=== PATIENT | female | born 1945 | race Caucasian/White ===

== ENCOUNTER 2022-06-06 07:18 | Day surgery (SDC) | payer MEDICARE ==
[2022-06-06] MEDS ORDERED: Lactated Ringers 1,000 ML IV SCH (08:00)
[2022-06-06] MEDS ORDERED: fentaNYL 100 MCG/2 ML SDV ONE (08:25)
[2022-06-06] MEDS ORDERED: Propofol 200 MG/20 ML SDV ONE (08:25)
[2022-06-06] MEDS ORDERED: Sodium Chloride 0.9% 10 ML ONE (09:39)
== END 2022-06-06 11:10 | disposition home or self-care (01) ==
LOC: JP.SDS 07:18
PROVIDERS: ATTEND Family Medicine
DX: D12.2 Benign neoplasm of ascending colon (principal); D12.0 Benign neoplasm of cecum; D12.4 Benign neoplasm of descending colon; C67.9 Malignant neoplasm of bladder, unspecified; Z98.890 Other specified postprocedural states; Z79.899 Other long term (current) drug therapy
CPT/HCPCS: 88305; J2704; J3010; J3490; J7120

== ENCOUNTER 2022-11-18 03:54 | Emergency (ER) | payer MEDICARE ==
[2022-11-18] MEDS ORDERED: fentaNYL 100 MCG/2 ML SDV IM ONE (04:45)
[2022-11-18] MEDS ORDERED: Sodium Chloride 0.9% 1,000 ML IV STA (04:54)
[2022-11-18] MEDS ORDERED: Sodium Chloride 0.9% 10 ML Syringe FLUSH PRN (04:54)
[2022-11-18] MEDS ORDERED: fentaNYL 100 MCG/2 ML SDV IVPUSH ONE (04:59)
[2022-11-18] MEDS ORDERED: Naloxone 0.4 MG/ML SDV IVPUSH PRN (04:59)
[2022-11-18] MEDS ORDERED: Sodium Chloride 0.9% 10 ML SDV FLUSH ONE (05:13)
[2022-11-18] MEDS ORDERED: Iopamidol 612 MG/ML 100 ML Bottle IV PRN (05:13)
[2022-11-18 05:15] LABS: BASOPHILS ABSOLUTE AUTO 0.03 K/uL (0.00-0.10); BASOPHILS PERCENT AUTO 0.2 % (0.1-1.3); EOSINOPHILS ABSOLUTE AUTO 0.04 K/uL (0.00-0.40); EOSINOPHILS PERCENT AUTO 0.3 % (0.0-5.4); HEMOGLOBIN 13.3 g/dL (11.2-15.5); IMMATURE GRAN ABSOLUTE AUTO 0.06 K/uL (0.00-0.23); IMMATURE GRAN PERCENT AUTO 0.4 % (0.0-0.7); LYMPHOCYTES ABSOLUTE AUTO 1.27 K/uL (0.8-3.3); LYMPHOCYTES PERCENT AUTO 8.9 % (11.4-47.7); MEAN CORPUSCULAR HEMOGLOBIN 32.6 pg (31.6-35.5); MEAN CORPUSCULAR VOLUME 93.1 fL (81.4-99.0); MONOCYTES ABSOLUTE AUTO 0.51 K/uL (0.20-0.90); MONOCYTES PERCENT AUTO 3.6 % (3.3-12.6); NEUTROPHILS PERCENT AUTO 86.6 % (40.0-78.1); PLATELET COUNT,PLT 246 K/uL (130-375); RED BLOOD CELL COUNT 4.08 M/uL (3.77-5.24); WHITE BLOOD CELL COUNT,WBC 14.3 K/uL (3.2-11.0)
[2022-11-18] MEDS ORDERED: Sodium Chloride 0.9% 100 ML IV SCH (05:15)
[2022-11-18 05:17] LABS: ALANINE AMINOTRANSFERASE,ALT 18 U/L (12-78); ALBUMIN 3.4 g/dL (3.4-5.0); ALKALINE PHOSPHATASE 82 U/L (46-116); ASPARTATE AMNIOTRANSFERASE,AST 21 U/L (15-37); BILIRUBIN TOTAL 1.3 mg/dL (0.2-1.0); BLOOD UREA NITROGEN,BUN 24 mg/dL (7-18); CALCIUM 8.9 mg/dL (8.5-10.1); CARBON DIOXIDE,CO2 23 mmol/L (21-32); CHLORIDE,CL 93 mmol/L (100-108); EST CRCL DRUG DOSING (CG) 17.19 mL/min; ESTIMATED GFR 25 mL/min (>60); GLUCOSE RANDOM 167 mg/dL (74-106); PROTEIN TOTAL,TP 6.9 g/dL (6.4-8.2); SODIUM,NA 126 mmol/L (140-148)
[2022-11-18 05:32] LABS: APPEARANCE,URINE CLEAR (CLEAR); BILIRUBIN,URINE NEGATIVE (NEGATIVE); COLOR,URINE YELLOW (YELLOW); GLUCOSE,URINE NEGATIVE (NEGATIVE); KETONES,URINE NEGATIVE (NEGATIVE); LEUKOCYTE ESTERASE,URINE NEGATIVE (NEGATIVE); NITRITE,URINE NEGATIVE (NEGATIVE); OCCULT BLOOD,URINE NEGATIVE (NEGATIVE); PH,URINE 5.5 (5.0-8.0); PROTEIN,URINE NEGATIVE (NEGATIVE); UROBILINOGEN,URINE 0.2 EU/dL (0.2-1.0)
[2022-11-18 05:38] LABS: AMORPHOUS SEDIMENT,URINE NOT SEEN; BACTERIA,URINE FEW; EPITHELIAL CELLS,URINE RARE; MUCUS,URINE NOT SEEN; RBC,URINE 0-5 (0-5)
[2022-11-18] MEDS ORDERED: fentaNYL 50 MCG/ML SDV IVPUSH ONE (07:46)
== END 2022-11-18 09:38 | disposition home or self-care (01) ==
LOC: JP.ED 03:54
DX: K59.00 Constipation, unspecified (principal); Z20.822 Contact with and (suspected) exposure to COVID-19; Z85.51 Personal history of malignant neoplasm of bladder
CPT/HCPCS: 36415; 51702; 74018; 74176; 80053; 81001; 83605; 83690; 85025; 96374; 96376; 99284; J3010; J7030; U0002

== ENCOUNTER 2023-03-06 07:27 | Day surgery (SDC) | payer MEDICARE ==
[~2023-03-06 07:27] MED LIST: Propofol 200 MG/20 ML SDV ONE; fentaNYL 50 MCG/ML SDV ONE
[2023-03-06] MEDS ORDERED: Lactated Ringers 1,000 ML IV SCH (08:00)
== END 2023-03-06 10:35 | disposition home or self-care (01) ==
LOC: JP.SDS 07:27
PROVIDERS: ATTEND Family Medicine
DX: Z12.11 Encounter for screening for malignant neoplasm of colon (principal); K62.1 Rectal polyp; K57.30 Diverticulosis of large intestine without perforation or abscess without bleeding; Z85.51 Personal history of malignant neoplasm of bladder
CPT/HCPCS: G0105; J2704; J3010; J7120

== ENCOUNTER 2023-08-07 19:17 | Emergency (ER) | payer MEDICARE ==
[2023-08-07] MEDS: methylPREDNISolone Sodium Succinate 125 MG/2 ML SDV IM ONE (20:48)
== END 2023-08-07 20:55 | disposition home or self-care (01) ==
LOC: JP.ED 19:17
DX: L25.1 Unspecified contact dermatitis due to drugs in contact with skin (principal); T50.Z95A Adverse effect of other vaccines and biological substances, initial encounter; Z86.16 Personal history of COVID-19; Z87.891 Personal history of nicotine dependence
CPT/HCPCS: 96372; 99282; J2930